=== PATIENT | female | born 1965 | race Caucasian/White ===

== ENCOUNTER 2018-10-26 09:05 | Emergency (ER) | payer BC, OTHER ==
[~2018-10-26] VITALS: Wt 109.0 kg
[~2018-10-26 09:05] MED LIST: BENZ-20 PO; CLAR500T39 PO; ESCI10TA; IPRA14.76 IH; OMEP40CA3 PO; PRED-248 PO
[2018-10-26] MEDS ORDERED: KETOROLAC 30 MG INJ IM STA (09:55)
[2018-10-26] MEDS ORDERED: ESCI10TA PO (10:33)
[2018-10-26] MEDS ORDERED: CEPH500C PO (10:34)
[2018-10-26] MEDS ORDERED: IBUP-1542 PO (10:44)
[2018-10-26 11:10] VITALS: BP 122/78; PULSE 78; RESP 18
--- NOTE | 2018-10-26 12:34 | ERD ---
ER Documentation Chief Complaint Chief Complaint HEADACHE AND VOMITING AND ABDOMINAL PAIN FOR 6 DAYS. NUMBNESS L SIDE HPI Patient is a 53-year-old female with history of headaches who presents with headache. The patient has had a gradual onset headache over the past 6 days. She is taking Keflex for a kidney infection. She feels pain and pressure in the posterior left lobe. Her primary doctor is Dr. Addi Cha. The patient has no slurred speech or weakness. ROS All systems reviewed and are negative except as per history of present illness. Medications Home Meds Active Scripts Ibuprofen* (Motrin*) 600 Mg Tab, 600 MG PO Q6H PRN for PAIN AND OR ELEVATED TEMP, #30 TAB Prov:RUSSELL KELLY MD 10/26/18 Reported Medications Cephalexin* (Cephalexin*) 500 Mg Capsule, 500 MG PO QID, #28 CAP FOR 10 DAYS,START DATE 10/25/18 10/26/18 Escitalopram Oxalate* (Lexapro*) 10 Mg Tablet, 5 MG PO DAILY, #30 TAB 10/26/18 Discontinued Reported Medications Albuterol/Ipratropium (Combivent) 14.7 Gm Inha, 14.7 GM IH QID, #2 06/26/11 Omeprazole* (Prilosec*) 40 Mg Capsule.dr, 40 MG PO DAILY 06/26/11 Benzonatate (Tessalon) 100 Mg Cap, 100 MG PO Q4 PRN 06/26/11 Clarithromycin* (Biaxin*) 500 Mg Tablet, 500 MG PO BID 06/26/11 Prednisone (Prednisone) 10 Mg Tablet, 10 MG PO DAILY 06/26/11 Escitalopram Oxalate* (Lexapro*) 10 Mg Tablet 06/19/10 Allergies Allergies: Coded Allergies: Sulfa (Sulfonamide Antibiotics) (Verified Allergy, Severe, SOB, INFLAMMATION, 10/26/18) PMhx/Soc History of Surgery: Yes (inner ear surgeries,appendectomy) Anesthesia Reaction: No Hx Neurological Disorder: No Hx Respiratory Disorders: Yes (pneumonia,asthma,broncitis) Hx Cardiac Disorders: No Hx Psychiatric Problems: No Hx Miscellaneous Medical Probl: No Hx Alcohol Use: No Hx Substance Use: No Hx Tobacco Use: No Smoking Status: Never smoker FmHx Family History: diabetes Physical Exam Vitals Vital Signs Date Temp Pulse Resp B/P (MAP) Pulse Ox O2 O2 Flow FiO2 Time Delivery Rate 10/26/18 78 18 122/78 98 Room Air 11:10 (93) 10/26/18 98.0 88 20 165/70 98 09:08 (101) Physical Exam Const: No acute distress Head: Atraumatic Eyes: Normal Conjunctiva ENT: Normal External Ears, Nose and Mouth. Neck: Full range of motion. No meningismus. Resp: Clear to auscultation bilaterally Cardio: Regular rate and rhythm, no murmurs Abd: Soft, non tender, non distended. Normal bowel sounds Skin: No petechiae or rashes Back: No midline or flank tenderness Ext: No cyanosis, or edema Neur: Awake and alert, cranial nerves II through XII intact, strength is 5 out of 5 in all 4 extremities, no slurred speech Psych: Normal Mood and Affect Results 24 hrs Current Medications Medications Dose Sig/Luz Marina Start Time Status Last (Trade) Ordered Route PRN Stop Time Admin Dose Reason Admin Ketorolac 30 mg ONCE STAT 10/26/18 DC 10/26/18 Tromethamine IM 09:55 10/26/18 10:06 (Toradol) 09:56 Procedures/MDM Patient is a 53-year-old female who presents with acute headache. I doubt intracranial hemorrhage, mass, or stroke. I believe the risk of doing a CT scan of the brain with benefits. Her neurologic exam is normal. The patient will be given Toradol for pain. She will be discharged and can return for any worsening symptoms. She should follow-up with her primary doctor within 24 to 48 hours. Departure Diagnosis: Primary Impression: Headache Headache type: unspecified Headache chronicity pattern: acute headache Intractability: not intractable Qualified Codes: R51 - Headache Condition: Fair Patient Instructions: Self-Care for Headaches Referrals: ADDI CHA MD- Additional Instructions: Call your primary care doctor TOMORROW for an appointment during the next 1-2 days.See the doctor sooner or return here if your condition worsens before your appointment time. RUSSELL KELLY MD Oct 26, 2018 12:34
== END 2018-10-26 11:27 | disposition home or self-care (01) ==
LOC: E/R 09:05
DX: R51 Headache (principal); J45.909 Unspecified asthma, uncomplicated
CPT/HCPCS: 96372; 99284; J1885